=== PATIENT | female | born 1950 | race Caucasian/White ===

== ENCOUNTER → 2016-11-06 | Outpatient (CLI) | payer MEDICARE, OTHER ==
--- NOTE | 2016-11-06 13:44 | CR ---
EXAMINATION: Pelvis and right hip HISTORY: Pain COMPARISON: 08/09/2016 TECHNIQUE: AP pelvis and 2 views of the right hip FINDINGS: There is no acute osseous abnormality, dislocation, or fracture. Bone mineralization appea rs grossly normal. The SI joints are symmetric. Right total hip hardware is noted with a minimal simone ency surrounding the femoral component, most unchanged. Mild degenerative changes are noted within t he lower lumbar spine. IMPRESSION: Stable right total hip hardware.
== END ==
LOC: MW.CHORTHO 07:46
PROVIDERS: ATTEND Orthopaedic Surgery
DX: M25.551 Pain in right hip (principal); Z96.641 Presence of right artificial hip joint
CPT/HCPCS: 73502-26-RT; 73502-RT

== ENCOUNTER 2016-12-13 10:32 | Emergency (ER) | payer MEDICARE, OTHER ==
[2016-12-13 10:48] VITALS: BP 161/104
--- NOTE | 2016-12-13 10:56 | EDM.PDOC ---
ED HPI Trauma - General Chief Complaint: Lower Extremity Injury/Pain Stated Complaint: KNEE Time Seen by Provider: 12/13/16 10:45 Source: Reports: Patient History Limitations: Reports: No limitations - History of Present Illness INITIAL COMMENTS - FREE TEXT/NARRATIVE: HISTORY AND PHYSICAL: History of present illness: [Patient comes to the emergency room complaining of right hip and right knee pain. She does not have a local primary care provider in the area. [place] the train early in the [place] of [place] 30. Patient was walking down some stairs on the train when she missed a step twisting her right knee and right hip. This caused her to fall landing on her right side. She has had continued pain and swelling since then. She is unsure if her pain starts in her knee and radiates up to her hip or if the pain is in her hip and radiates down to her knee. She's had a lot of swelling in her right knee, worse with activity. Has pain with weight bearing on her right leg. She is scheduled to followup with an orthopedist in [place] for a right total hip revision at the end of this month.] Review of systems: As per history of present illness and below otherwise all systems reviewed and negative. Past medical history: As per history of present illness and as reviewed below otherwise noncontributory. Surgical history: As per history of present illness and as reviewed below otherwise noncontributory. Social history: No reported history of drug or alcohol abuse. Family history: As per history of present illness and as reviewed below otherwise noncontributory. Physical exam: HEENT: Atraumatic, normocephalic. Lungs: Clear to auscultation, breath sounds equal bilaterally. Heart: S1S2, regular rate rhythm. Pelvis: Stable nontender. Genitourinary: Deferred. Rectal: Deferred. Extremities: Atraumatic in appearance. Tender with palpation over her right knee , no acute swelling noted. Neurovascular unremarkable. No swelling or cyanosis to her ankles or lower legs. Neuro: Awake, alert, oriented. Cranial nerves II through XII unremarkable. Motor and sensory unremarkable throughout. Exam nonfocal. Diagnostics: [R knee x-ray, R hip x-ray] Therapeutics: [Hydrocodone 7.5mg po] Impression: [R knee pain R hip pain] Plan: [Discussed with patient that her x-ray findings show no fractures or abnormalities. Report was pulled from the [facility] which showed patient has received 464 tablets of oxycodone, OxyContin and Lortab over the past 30 days. These were prescribed by a various providers in [place], through the ER and the clinic, and in [facility]. Reviewed with patient that I am unable to prescribe any narcotics for her but a more than happy to treat her pain in an injectable or oral form while she is here in the ER. Encouraged patient that she should followup with her prescriber at local primary care provider in [place], and to followup with orthopedist as scheduled. She is in agreement with today's plan. All of her questions are answered and concerns are addressed.] Definitive disposition and diagnosis as appropriate pending reevaluation and review of above. Allergies/ADRs: Allergies ketorolac tromethamine [From Toradol] Allergy (Verified 12/13/16 10:45) Diarrhea morphine Allergy (Verified 12/13/16 10:45) Vomiting NSAIDS (Non-Steroidal Anti-Inflamma Allergy (Verified 12/13/16 10:45) Diarrhea Home Medications: Ambulatory Orders . [No Known Home Meds] 08/09/16 [Confirmed 12/13/16] Past Medical History HEENT History: Reports: Impaired vision, Other (see below) Other HEENT History: wears glasses, has upper and lower dentures Cardiovascular History: Reports: Hypertension Respiratory History: Reports: None Gastrointestinal History: Reports: Cholelithiasis Genitourinary History: Reports: None [employer] History: Reports: Musculoskeletal History: Reports: Back pain, chronic, Fracture Other Musculoskeletal History: states has nerve pain in back after back surgery hx of fx arm and ribs Other Neuro History: states 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 Psychiatric History: Reports: Anxiety Endocrine/Metabolic History: Reports: None Hematologic History: Reports: Blood transfusion(s) Immunologic History: Reports: None Oncologic (Cancer) History: Reports: None Other Dermatologic History: pyoderma gangrenosum - Infectious Disease History Infectious Disease History: Reports: None - Past Surgical History Head Surgeries/Procedures: Reports: None HEENT Surgical History: Reports: Adenoidectomy, Tonsillectomy Cardiovascular Surgical History: Reports: None Respiratory Surgical History: Reports: None GI Surgical History: Reports: Appendectomy, Cholecystectomy Female Surgical History: Reports: Breast biopsy, Hysterectomy Endocrine Surgical History: Reports: None Other Neurological Surgeries/Procedures: states had disc surgery at [facility] Other Musculoskeletal Surgeries/Procedures:: back surgery, disc procedure at [facility] Oncologic Surgical History: Reports: None Dermatological Surgical History: Reports: None Social & Family History - Family History Family Medical History: Noncontributory - Tobacco Use Smoking Status *Q: Current Every Day Smoker Years of Tobacco use: 40 Packs/Tins Daily: 1 - Caffeine Use Caffeine Use: Reports: Coffee - Recreational Drug Use Recreational Drug Use: No Drug Use in Last 12 Months: No Review of Systems - Review of Systems Review Of Systems: ROS reveals no pertinent complaints other than HPI. Trauma Exam - Physical Exam Exam: See Below Course - Vital Signs Last Recorded V/S: Last Vital Signs Temp 97.8 F 12/13/16 10:45 Pulse 102 H 12/13/16 10:45 Resp 18 12/13/16 10:45 BP 161/104 H 12/13/16 10:45 Pulse Ox 99 12/13/16 10:45 - Orders/Labs/Meds Meds: Medications Discontinued Medications Generic Name Dose Route Start Last Admin Trade Name Alla PRN Reason Stop Dose Admin Hydrocodone Bitart/Acetaminophen 1 tab 12/13/16 11:54 12/13/16 12:05 [place] 325-7.5 Mg PO 12/13/16 11:55 1 tab ONETIME ONE Administration Departure - Departure Time of Disposition: 11:55 Disposition: Home, Self-Care 01 Condition: good Clinical Impression: Right hip pain Right knee pain Qualifiers: Chronicity: unspecified Qualified Code(s): M25.561 - Pain in right knee Instructions: Knee Pain, [id number] Referrals: PCP,None [Primary Care Provider] - Forms: ED Department Discharge Additional Instructions: The following information is given to patients seen in the emergency department who are being discharged to home. This information is to outline your options for follow-up care. We provide all patients seen in our emergency department with a follow-up referral. The need for follow-up, as well as the timing and circumstances, are variable depending upon the specifics of your emergency department visit. If you don't have a primary care physician on staff, we will provide you with a referral. We always advise you to contact your personal physician following an emergency department visit to inform them of the circumstance of the visit and for follow-up with them and/or the need for any referrals to a consulting specialist. The emergency department will also refer you to a specialist when appropriate. This referral assures that you have the opportunity for follow-up care with a specialist. All of these measure are taken in an effort to provide you with optimal care, which includes your follow-up. Under all circumstances we always encourage you to contact your private physician who remains a resource for coordinating your care. When calling for follow-up care, please make the office aware that this follow-up is from your recent emergency room visit. If for any reason you are refused follow-up, please contact the [facility] emergency department at and asked to speak to the emergency department charge nurse. [facility] [address] [place] [id number] Establish care with a local primary care provider. Take home medications as prescribed. Followup with orthopedist in [place] as scheduled. Return to ER as needed as discussed
--- NOTE | 2016-12-13 11:27 | CR ---
EXAMINATION: Pelvis and right hip HISTORY: Fall COMPARISON: 11/06/2016 TECHNIQUE: AP pelvis and 2 views of the right hip FINDINGS: Right total hip hardware is demonstrated in stable position and alignment. There is no fra cture or acute osseous abnormality. The SI joints are symmetric. The iliopectineal lines are intact. Bone mineralization appears normal. IMPRESSION: No acute osseous abnormality identified.
--- NOTE | 2016-12-13 11:28 | CR ---
EXAMINATION: Right knee HISTORY: Pain COMPARISON: None TECHNIQUE: 3 views FINDINGS: There is no acute osseous abnormality, dislocation, or fracture identified. No soft tissue swelling or joint effusion. IMPRESSION: Grossly unremarkable right knee.
[2016-12-13] MEDS ORDERED: Acetaminophen/HYDROcodone 325-7.5 MG Tab PO ONE (11:54)
== END 2016-12-13 12:07 | disposition home or self-care (01) ==
LOC: MW.ED 10:32
DX: M25.551 Pain in right hip (principal); M25.561 Pain in right knee; F17.210 Nicotine dependence, cigarettes, uncomplicated; Z88.5 Allergy status to narcotic agent; Z88.8 Allergy status to other drugs, medicaments and biological substances; Z90.49 Acquired absence of other specified parts of digestive tract; Z90.710 Acquired absence of both cervix and uterus; Z98.890 Other specified postprocedural states
CPT/HCPCS: 73502; 73562; 99283; A9270